=== PATIENT | female | born 1995 | race Caucasian/White ===

== ENCOUNTER 2021-05-15 04:12 | Emergency (ER) | payer OTHER ==
--- NOTE | 2021-05-15 04:17 | ED Physician Documentation ---
History of Present Illness - Stated complaint Stated Complaint: N/V/D, CHEST PRESSURE, WEAKNESS, CHILLS - History obtained from History obtained from: Patient - History of Present Illness Timing: Enter time (19:00), Today Pain level now: 6 Improved by: no ameliorating factors Worsened by: palpation - Additonal information Additional information: c/o nausea, vomiting, abdominal pain, diarrhea, chills, and weakness. Symptoms started 7 PM tonight. Denies h/o similar symptoms. Review of Systems Constitutional: reports: Chills. denies: Fever Cardiac: reports: Reviewed and negative Respiratory: reports: Reviewed and negative GI: reports: Abdominal Pain (predominantly epigastric), Nausea, Vomiting, Diarrhea. denies: Hematemesis, Bloody / black stool : denies: Dysuria, Frequency, Now [facility] PD PAST MEDICAL HISTORY - Past Medical History Past Medical History: Yes Psych: Depression - Past Surgical History Past Surgical History: No - Present Medications Home Medications: Ambulatory Orders Medication Instructions Recorded Confirmed Guanfacine HCl [Intuniv] 1 mg PO DAILY 05/15/21 05/15/21 HYDROcod/ACETAM 5/325 [[place] 5/325] 1 - 2 tablet PO Q6H PRN #10 tablet 05/15/21 Promethazine [Phenergan] 25 mg PO Q6H PRN #10 tab 05/15/21 Sertraline [Zoloft] 25 mg PO DAILY 05/15/21 05/15/21 buPROPion [Wellbutrin Sr] 100 mg PO DAILY 05/15/21 05/15/21 - Allergies Allergies/Adverse Reactions: Allergies Allergy/AdvReac Type Severity Reaction Status Date / Time No Known Drug Allergies Allergy Verified 05/15/21 04:28 - Living Situation Living Arrangement: reports: At home - Social History Does the pt drink ETOH?: No PD ED PE NORMAL - Vitals Vital signs reviewed: Yes - General General: Alert and oriented X 3, Well developed/nourished, Other (appears to be in painful distress that waxes and wanes during H+P; emesis x 2 during H+P) - Neck Neck: Supple, no meningeal sign - Cardiac Cardiac: RRR, No murmur - Respiratory Respiratory: No respiratory distress, Clear bilaterally - Abdomen Abdomen: Soft, Non distended - Derm Derm: Normal color, Warm and dry PD ED PE EXPANDED - Abdomen Abdomen: Tender to palpation, RUQ, Epigastric. No: Rebound, Guarding Results - Vitals Vitals: Oxygen O2 Source Room air - Labs Labs: Laboratory Tests 05/15/21 05/15/21 04:35 04:35 WBC 9.9 RBC 4.34 Hgb 13.4 Hct 39.7 MCV 91.5 MCH 30.9 MCHC 33.8 RDW 12.0 Plt Count 297 MPV 10.9 H Neut # (Auto) 7.9 H Lymph # (Auto) 1.4 L [place] # (Auto) 0.5 Eos # (Auto) 0.0 Baso # (Auto) 0.0 Absolute Nucleated RBC 0.00 Nucleated RBC % 0.0 Sodium 138 Potassium 3.8 Chloride 102 Carbon Dioxide 20 L Anion Gap 16.0 H BUN 15 Creatinine 0.8 Estimated GFR (MDRD) 86 L Glucose 196 H Calcium 9.8 Total Bilirubin 1.0 AST 29 ALT 37 Alkaline Phosphatase 48 Total Protein 7.9 Albumin 5.0 Globulin 2.9 Albumin/Globulin Ratio 1.7 Lipase 29 - Rads (name of study) RUQ US Radiology: Prelim report reviewed, See rad report chest xray Radiology: Prelim report reviewed, See rad report PD MEDICAL DECISION MAKING - ED course Complexity details: reviewed results, re-evaluated patient, considered differential, d/w patient ED course: Unremarkable blood tests; hyperglycemia noted, suspect this is reaction to her symptoms and not causative nor contributory. CXR is unremarkable and US demonstrates possible GB sludge but no indications of cholecystitis. After IV toradol, dilaudid, and phenergan, she is in NAD and reports feeling significant improvement. Results reviewed. Cause of her symptoms is unclear; possibly biliary colic due to GB sludge, also would consider gastritis, PUD within the differential diagnosis. Return precautions discussed and recommended follow up with primary care provider I am prescribing a short course of short-acting opioid pain medication for this patient. I have reviewed the patients [employer] and no concerning findings were noted. I have discussed that the opioids are for short term therapy only, and will not be refilled from the ED. Departure - Departure Disposition: 01 Home, Self Care Clinical Impression: Abdominal pain Qualifiers: Abdominal location: upper abdomen, unspecified Qualified Code(s): R10.10 - Upper abdominal pain, unspecified Condition: Good Instructions: ED Abdominal Pain Female Non-Specific Abdominal Pain Prescriptions: HYDROcod/ACETAM 5/325 [[place] 5/325] 1 - 2 tablet PO Q6H PRN #10 tablet PRN Reason: Pain Promethazine [Phenergan] 25 mg PO Q6H PRN #10 tab PRN Reason: Nausea / Vomiting Comments: Follow up with your primary care provider, next available appointment. The cause of your symptoms is not clear at this time. Your ultrasound did show some sludge in your gallbladder, which can sometimes cause pain in the same way as gallstones. However, this might be an incidental finding. If your pain persists or recurs, further testing might be necessary. Return to the emergency department if your pain worsens or if you develop new concerning signs/symptoms such as fever. Prescriptions for an antinauseant (phenergan) and pain medication (vicodin) have been electronically submitted to [facility] pharmacy in [place]. I am prescribing a short course of narcotic pain medication for you. These are potentially dangerous and addictive medications that should be used carefully. These medications may constipate you. Take an [id number] stool softener (docusate) twice daily with plenty of water while taking these medications. If you go 24 hours without a bowel movement, take [id number] miralax, per package instructions. Do not drink or drive while taking these medications. If you received narcotic or sedating medications while in the emergency department, do not drive for 24 hours. Store this medication in a safe, secure place and out of reach of children. It is a violation of federal law to give or sell this medication to another person or to use in a manner other than prescribed. The ED will not refill narcotic prescriptions, including prescriptions lost or stolen. To dispose of unwanted medications: 1. [facility] at [address] in [place] has a medication drop box. They accept prescription medications (in pill form) Friday through Friday 9:00 a.m. to 5:00 p.m. 2. The [facility] [employer] accepts prescription medications (in pill form only) for disposal year round. Call for more information. 3. Contact the [facility] for the next [facility] sponsored prescription drug collection event. , [phone], or x [phone]; Forms: Activity restrictions Discharge Date/Time: 05/15/21 06:57
[2021-05-15] MEDS ORDERED: KETOROLAC 30 MG/ML VIAL IVP STA (04:38)
[2021-05-15] MEDS ORDERED: SODIUM CHLORIDE 0.9% 1,000 ML IV STA (04:38)
[2021-05-15] MEDS ORDERED: PROMETHAZINE INJ 25 MG in SODIUM CHLORIDE 0.9% 50 ML IV STA (04:39)
[2021-05-15] MEDS ORDERED: HYDROmorphone 1 MG/ML CARPUJECT IVP STA ×2 (04:39→05:35)
[2021-05-15] MEDS ORDERED: PROMETHAZINE 25 MG/1 ML VIAL ONE (04:48)
[2021-05-15 04:55] LABS: BASOPHILS % (AUTO) 0.2 %; HCT - HEMATOCRIT 39.7 % (37.0-47.0); HGB - HEMOGLOBIN 13.4 g/dL (12.0-16.0); LYMPHOCYTES # (AUTO) 1.4 10^3/uL (1.5-3.5); LYMPHOCYTES % (AUTO) 13.8 %; MEAN CORPUSCULAR HEMOGLOBIN 30.9 pg (27.0-31.0); MEAN CORPUSCULAR HGB CONC 33.8 g/dL (32.0-36.0); MEAN CORPUSCULAR VOLUME 91.5 fL (81.0-99.0); MEAN PLATELET VOLUME 10.9 fL (7.9-10.8); MONOCYTES # (AUTO) 0.5 10^3/uL (0.0-1.0); MONOCYTES % (AUTO) 5.5 %; NEUTROPHILS # (AUTO) 7.9 10^3/uL (1.5-6.6); PLT - PLATELET COUNT 297 10^3/uL (130-450); RED BLOOD COUNT 4.34 10^6/uL (4.20-5.40); WHITE BLOOD COUNT 9.9 x10^3/uL (4.8-10.8)
[2021-05-15 05:08] LABS: ALBUMIN/GLOBULIN RATIO 1.7 (1.0-2.2); CALCIUM 9.8 mg/dL (8.5-10.3); CREATININE 0.8 mg/dL (0.4-1.0); POTASSIUM 3.8 mmol/L (3.5-5.0); TOTAL PROTEIN 7.9 g/dL (6.7-8.2)
[2021-05-15] MEDS ORDERED: DROPERIDOL 5 MG/2 ML VIAL IVP STA (05:33)
[2021-05-15 06:58] VITALS: BP 101/60
--- NOTE | 2021-05-15 08:04 | Ultrasound Report ---
PROCEDURE: Abdomen Limited INDICATIONS: abd. pain TECHNIQUE: Real-time focused scanning was performed of the abdomen, with image documentation. COMPARISON: None FINDINGS: Liver has a normal echo pattern. No masses. The bladder is unremarkable. Question sludge. No stones. No wall thickening or fluid around the gallb ladder or sonographic Wilkerson sign. Right kidney is normal in size, measuring 10.7 cm. No hydronephrosis. Visualized portions of the pancreas are unremarkable. IMPRESSION: Unremarkable right upper quadrant ultrasound with no evidence of gallstone disease. Findings are concordant with preliminary interpretation provided by [facility]. Reviewed by: Fabio Del Angel MD on 05/15/2021 8:03 AM PST Approved by: Fabio Del Angel MD on 05/15/2021 8:03 AM PST Station ID: [id number]
--- NOTE | 2021-05-15 08:06 | XRAY Report ---
PROCEDURE: Chest 1 View X-Ray INDICATIONS: chest pain TECHNIQUE: One view of the chest was acquired. COMPARISON: None FINDINGS: Surgical changes and devices: None. Lungs and pleura: No pleural effusions or pneumothorax. Lungs are clear. Mediastinum: Mediastinal contours appear normal. Heart size is normal. Bones and chest wall: No suspicious bony lesions. Overlying soft tissues appear unremarkable. IMPRESSION: No evidence acute pulmonary process. Findings are concordant with preliminary interpretation provided by [facility]. Reviewed by: Fabio Del Angel MD on 05/15/2021 8:05 AM PST Approved by: Fabio Del Angel MD on 05/15/2021 8:05 AM PST Station ID: [id number]
== END 2021-05-15 06:57 | disposition home or self-care (01) ==
LOC: ED 04:12
DX: R10.10 Upper abdominal pain, unspecified (principal)
CPT/HCPCS: 36415; 71045; 76705; 80053; 83690; 85025; 93005; 96365; 96375; 96376; 99283; 99284; J1170; J7040

== ENCOUNTER 2023-04-28 08:00 | Outpatient (CLI) | payer OTHER ==
[2023-04-29 20:37] LABS: CHLAMYDIA TRACHOMATIS DNA NEGATIVE (NEGATIVE); NEISSERIA GONORRHOEAE DNA NEGATIVE (NEGATIVE); TRICHOMONAS VAGINALIS DNA NEGATIVE (NEGATIVE)
== END 2023-04-28 23:59 | disposition home or self-care (01) ==
LOC: LAB.WC 08:00
PROVIDERS: ATTEND Nurse Practitioner
DX: Z11.3 Encounter for screening for infections with a predominantly sexual mode of transmission (principal)
CPT/HCPCS: 87491; 87591; 87661

== ENCOUNTER 2023-05-21 07:32 | Outpatient (CLI) | payer OTHER ==
--- NOTE | 2023-05-21 09:03 | Ultrasound Report ---
PROCEDURE: Pelvic w/Transvaginal INDICATIONS: FEMALE PELVIC PAIN TECHNIQUE: Real-time scanning was performed of the pelvic organs, with image documentation. Additional endovagi nal scanning was necessary due to incomplete visualization of the adnexal and endometrial structures by transabdominal scanning. COMPARISON: None. FINDINGS: Uterus: Uterus is anteverted and normal in size at 7.2 x 3.0 x 4.4 cm. The myometrium is homogeneou s. The endometrium measures 2 mm in combined thickness. Trace fluid within the endometrium with two calcifications measuring up to 6 mm. Ovaries: The right ovary measures 2.3 x 1.8 x 1.5 cm, with a calculated ovarian volume of 3.3 cc. T he left ovary measures 1.1 x 0.7 x 0.9 cm, with a calculated ovarian volume of 0.4 cc. The ovaries h ave a normal sonographic appearance. Less than 12 follicles can be seen in each ovary. No adnexal m asses are seen. No cystic lesions measuring greater than 3 cm. Other: No pathologic free abdominal or pelvic fluid. IMPRESSION: 1.The endometrium is normal in thickness with trace fluid and two calcifications measuring up to 6 mm , of unclear clinical significance. Consider follow-up ultrasound as clinically indicated. 2.The remainder of the pelvic ultrasound is within normal limits. Reviewed by: Fermín Hardy MD on 05/21/2023 9:02 AM PST Approved by: Fermín Hardy MD on 05/21/2023 9:02 AM PST Station ID: [id number]
== END 2023-05-21 07:33 | disposition home or self-care (01) ==
LOC: DI 07:32
PROVIDERS: ATTEND Nurse Practitioner
DX: R10.2 Pelvic and perineal pain (principal)

== ENCOUNTER 2023-08-22 07:29 | Outpatient (CLI) | payer OTHER ==
--- NOTE | 2023-08-22 09:19 | MRI Report ---
PROCEDURE: Lumbar Spine WO INDICATIONS: BACK PAIN TECHNIQUE: Noncontrast sagittal T1 spin echo and T2 fast echo, sagittal STIR, axial T1 and T2 fast spin echo thr ough the lumbar spine. In cases with scoliosis, additional coronal T2 fast spin echo may be performe d. COMPARISON: None. FINDINGS: Image quality: Excellent. Alignment and Curvature: There is normal bony alignment. Bone Marrow: Marrow is of normal overall signal. No acute vertebral body compression fractures. Spinal Cord: Conus medullaris terminates at the L1 level. Visualized cord demonstrates normal signa l and size. Paraspinous Soft Tissues: No paravertebral masses. T12-L1: Normal in appearance. L1-L2: Normal in appearance. L2-L3: Mild facet hypertrophy. No canal stenosis or foraminal stenosis. L3-L4: Disc bulge. Facet hypertrophy. No canal stenosis or foraminal stenosis. L4-L5: Chronic disc height loss. Very Large left paracentral disc extrusion. Extruded disc material measures 1.2 x 1.6 x 1.1 cm. There is obliteration of multiple left-sided nerve roots, including S1 a nd S2. No foraminal narrowing. L5-S1: Normal in appearance. IMPRESSION: A very large left paracentral disc extrusion at L4-L5 obliterates multiple left-sided nerve root stru ctures, including S1 and S2. Reviewed by: Fabio Del Angel MD on 08/22/2023 9:17 AM PDT Approved by: Fabio Del Angel MD on 08/22/2023 9:17 AM PDT Station ID: [id number]
== END 2023-08-22 07:30 | disposition home or self-care (01) ==
LOC: DI 07:29
PROVIDERS: ATTEND Internal Medicine
DX: M54.30 Sciatica, unspecified side (principal); M51.26 Other intervertebral disc displacement, lumbar region